=== PATIENT | male | born 1955 | race Caucasian/White ===

== ENCOUNTER 2021-11-03 22:40 | Emergency (ER) | payer MEDICARE, OTHER ==
[~2021-11-03] VITALS: Ht 165.1 cm; Wt 74.8 kg
[2021-11-03 23:14] VITALS: BP 162/80
[2021-11-03] MEDS ORDERED: CARB15DR12 LEFT EAR (23:25)
--- NOTE | 2021-11-03 23:42 | NUR ---
COVID SWAB DONE AND SENT TO LAB
== END 2021-11-03 23:42 | disposition home or self-care (01) ==
LOC: ER 22:48
DX: H61.22 Impacted cerumen, left ear (principal); J04.0 Acute laryngitis; Z20.822 Contact with and (suspected) exposure to COVID-19; I10 Essential (primary) hypertension
CPT/HCPCS: 99283; 87426; C9803